=== PATIENT | female | born 1990 | race Caucasian/White ===

== ENCOUNTER 2017-01-11 18:05 | Emergency (ER) | payer OTHER ==
[~2017-01-11] VITALS: Ht 149.9 cm; Wt 50.8 kg
[~2017-01-11 18:05] MED LIST: AUGMENTIN 875 M1 TAB PO; BCP; DEPO PROVER150 MG/ML; PENICILLIN-VK500 M1 PO; ZITHROMAX Z PA250 MG PO
[2017-01-11 18:17] VITALS: BP 124/68
--- NOTE | 2017-01-11 18:35 | NUR ---
Patient to bed 06.
--- NOTE | 2017-01-11 18:40 | NUR ---
PATIENT PRESENTS TO ED WITH C/O THROAT PAIN X 1 DAY---WITH SUBJECTIVE F/C, MILD COUGH;DENIES N/V/D; SKIN IS PINK/WARM/DRY; AAOX4 WITH EVEN AND STEADY GAIT; LUNGS CLEAR BL; HR EVEN AND REGULAR; PT DENIES ANY FEVER, CP, SOB, OR COUGH AT THIS TIME; PATIENT STATES PAIN OF 8/10 AT THIS TIME;PATIENT POSITIONED FOR COMFORT; HOB ELEVATED; BEDRAILS UP X2; BED DOWN.
[2017-01-11] MEDS ORDERED: cefTRIAXone 250 MG in LIDOCAINE 1% ED 0.9 ML IM ONE (18:45)
[2017-01-11] MEDS ORDERED: AZITHROMYCIN 250 MG TAB PO ONE (18:50)
--- NOTE | 2017-01-11 19:22 | NUR ---
Patient discharged with v/s stable. Written and verbal after care instructions given and explained. Patient alert, oriented and verbalized understanding of instructions. Ambulatory with steady gait. All questions addressed prior to discharge. ID band removed. Patient advised to follow up with PMD. Rx of BACTRIM AND TYLENOL given. Patient educated on indication of medication including possible reaction and side effects. Opportunity to ask questions provided and answered.
[2017-01-11 19:25] VITALS: BP 124/68
== END 2017-01-11 19:22 | disposition home or self-care (01) ==
LOC: MED 18:05
DX: J02.9 Acute pharyngitis, unspecified (principal); N39.0 Urinary tract infection, site not specified; R03.0 Elevated blood-pressure reading, without diagnosis of hypertension; Z88.0 Allergy status to penicillin; Z11.3 Encounter for screening for infections with a predominantly sexual mode of transmission
CPT/HCPCS: 36415; 81001; 81025; 87086; 87186; 96372; 99284; J0696; J2001

== ENCOUNTER 2017-06-23 10:30 | Emergency (ER) | payer OTHER ==
[~2017-06-23] VITALS: Ht 152.4 cm; Wt 54.4 kg
[2017-06-23 10:42] VITALS: BP 131/73
--- NOTE | 2017-06-23 11:01 | NUR ---
Patient ambulated to bed 12.
--- NOTE | 2017-06-23 11:04 | NUR ---
PT PRESENTS TO ER W/C/O SORE THROAT X4 DAYS. PT STATES SHE HAS RUNNY NOSE AND NON PRODUCTIVE COUGH.ALSO C/O SUAZO AND CHILLS; DENIES N/V/D; SKIN IS PINK/WARM/DRY; AAOX4 WITH EVEN AND STEADY GAIT; LUNGS CLEAR BL; HR EVEN AND REGULAR; PT DENIES ANY FEVER, CP, SOB AT THIS TIME; PATIENT STATES PAIN OF 8/10 AT THIS TIME;PATIENT POSITIONED FOR COMFORT; HOB ELEVATED; BEDRAILS UP X2; BED DOWN. ER MD MADE AWARE OF PT STATUS.
--- NOTE | 2017-06-23 11:18 | NUR ---
DR RANDHAWA AT BEDSIDE.
[2017-06-23] MEDS ORDERED: DEXAMETHASONE 10 MG/ML VIAL PO ONE (11:20)
--- NOTE | 2017-06-23 11:37 | NUR ---
Patient discharged with v/s stable. Written and verbal after care instructions given and explained. Patient verbalized understanding. Ambulatory with steady gait. All questions addressed prior to discharge. Advised to follow up with PMD.
[2017-06-23 11:38] VITALS: BP 122/75
== END 2017-06-23 11:37 | disposition home or self-care (01) ==
LOC: MED 10:30
DX: J02.8 Acute pharyngitis due to other specified organisms (principal); F17.210 Nicotine dependence, cigarettes, uncomplicated; Z88.0 Allergy status to penicillin
CPT/HCPCS: 99283; J1100

== ENCOUNTER 2018-08-16 13:19 | Emergency (ER) | payer OTHER ==
[~2018-08-16] VITALS: Ht 152.4 cm; Wt 53.1 kg
[2018-08-16 13:50] VITALS: BP 120/73
[2018-08-16] MEDS ORDERED: NACL 0.9% 1,000 ML IV ONE (15:49)
[2018-08-16] MEDS ORDERED: NACL 0.9% 1,000 ML IV SCH (15:49)
[2018-08-16] MEDS ORDERED: KETOROLAC 30 MG/ML VIAL IVP ONE (15:50)
[2018-08-16] MEDS ORDERED: MORPHINE SULFATE 4 MG/ML SYR IVP ONE (15:50)
[2018-08-16] MEDS ORDERED: ONDANSETRON 4 MG/2 ML VIAL IVP ONE (15:50)
[2018-08-16 16:35] LABS: BASOPHILS # (AUTO) 0.1 K/uL (0.00-0.22); BASOPHILS % (AUTO) 0.4 % (0.0-2.0); EOSINOPHILS % (AUTO) 0.1 % (0.0-4.0); HEMATOCRIT 42.4 % (36-48); HEMOGLOBIN 13.8 g/dL (12.0-16.0); LYMPHOCYTES # (AUTO) 2.7 K/uL (2.5-16.5); LYMPHOCYTES % (AUTO) 16.3 % (20.5-51.1); MEAN CORPUSCULAR HEMOGLOBIN 29 pg (27-31); MEAN CORPUSCULAR HGB CONC 33 g/dL (33-37); MEAN CORPUSCULAR VOLUME 89.9 fL (80-94); MONOCYTES # (AUTO) 1.5 K/uL (0.8-1.0); MONOCYTES % (AUTO) 9.4 % (1.7-9.3); NEUTROPHILS % (AUTO) 73.8 % (42.2-75.2); PLATELET COUNT (AUTO) 219 K/uL (140-450); RED BLOOD CELL COUNT(AUTO) 4.72 MIL/uL (4.20-5.40); RED CELL DISTRIBUTION WIDTH 15.1 % (11.6-13.7); WHITE BLOOD COUNT (AUTO) 16.2 K/uL (4.8-10.8)
[2018-08-16 17:00] LABS: ALBUMIN 3.9 g/dL (3.4-5.0); ANION GAP 17.6 (8-16); CARBON DIOXIDE 23.8 mmol/L (21-32); CREATININE 0.8 mg/dL (0.6-1.3); POTASSIUM 3.4 mmol/L (3.5-5.1); TOTAL BILIRUBIN 0.3 mg/dL (0.0-1.0)
[2018-08-16 17:39] LABS: URIC ACID 4.2 mg/dL (2.6-7.2)
[2018-08-16] MEDS ORDERED: cefTRIAXone 1,000 MG VIAL ONE (18:54)
[2018-08-16 19:11] VITALS: BP 102/67
== END 2018-08-16 19:11 | disposition home or self-care (01) ==
LOC: MED 13:19
DX: N23 Unspecified renal colic (principal); N39.0 Urinary tract infection, site not specified; N73.9 Female pelvic inflammatory disease, unspecified; Z88.0 Allergy status to penicillin
CPT/HCPCS: 36415; 74176; 80053; 81002; 81025; 82150; 83690; 84550; 84703; 85025; 96365; 96375; 99284; J0696; J1885; J2270; J2405; J7030; J7060